=== PATIENT | female | born 1995 | race Two or more races ===

== ENCOUNTER 2022-10-12 19:47 | Observation (INO) | payer OTHER ==
[~2022-10-12] VITALS: Ht 160 cm; Wt 76.7 kg
[2022-10-12] MEDS ORDERED: VIT1TABL62 PO (20:35)
[2022-10-12] MEDS ORDERED: PREN-176 PO (20:35)
[2022-10-12] MEDS ORDERED: FERR-71 PO (20:35)
[2022-10-12] MEDS ORDERED: OMEG-119 PO (20:35)
[2022-10-12 22:41] LABS: BASOPHILS % 0.1 % (0.0-2.0); EOSINOPHILS % 0.8 % (0.0-5.0); HEMATOCRIT. 33.5 % (36.0-48.0); HEMOGLOBIN. 11.6 g/dL (12.0-16.0); LYMPHOCYTES % 9.5 % (20.0-50.0); MEAN CORPUSCULAR HEMOGLOBIN 31.1 pg (28.0-32.0); MEAN CORPUSCULAR VOLUME 90.2 fL (81.0-99.0); MEAN PLATELET VOLUME 7.8 fl (7.4-10.4); MONOCYTES % 4.4 % (2.0-8.0); NEUTROPHILS % 85.2 % (40.0-76.0); PLATELET 245 x1000/uL (130-400); RED BLOOD CELL COUNT 3.72 mill/uL (4.2-5.4); RED CELL DISTRIBUTION WIDTH 13.6 % (11.6-14.6)
[2022-10-12 22:48] LABS: CLARITY URINE CLEAR (CLEAR); COLOR URINE YELLOW (YELLOW); KETONES URINE NEGATIVE (NEGATIVE); LEUKOCYTE ESTERASE URINE NEGATIVE (NEGATIVE); NITRITE URINE NEGATIVE (NEGATIVE); OCCULT BLOOD URINE NEGATIVE (NEGATIVE); PH URINE 7.5 (4.5-8.0); PROTEIN URINE NEGATIVE (NEGATIVE); SPECIFIC GRAVITY URINE 1.006 (1.005-1.030); UROBILINOGEN URINE 0.2 E.U./dL (0.2-1.0)
[2022-10-13] MEDS: LACTATED RINGERS 1,000 ML IV SCH ×2 (00:44→04:41)
[2022-10-13] MEDS ORDERED: PENICILLIN G POTASSIUM 5 MMU in DEXT 5% WATER 100 ML IV SCH (06:15)
[2022-10-13] MEDS ORDERED: PENICILLIN G POTASSIUM 2.5 MMU in DEXTROSE 5% WATER 50 ML IV SCH (12:00)
== END 2022-10-13 02:10 | disposition home or self-care (01) ==
LOC: 8 EST LDRP 19:47
PROVIDERS: ADMIT Obstetrics & Gynecology; ATTEND Obstetrics & Gynecology
DX: O26.893 Other specified pregnancy related conditions, third trimester (principal); R10.2 Pelvic and perineal pain; R10.30 Lower abdominal pain, unspecified; O62.9 Abnormality of forces of labor, unspecified; Z3A.31 31 weeks gestation of pregnancy
CPT/HCPCS: 36415; 59025; 76805; 76818; 81003; 82731; 85025; 96360; G0378; J2540; J7060; 99281

== ENCOUNTER 2022-11-17 17:58 | Emergency (ER) | payer OTHER ==
[~2022-11-17] VITALS: Ht 165.1 cm; Wt 75.0 kg
[~2022-11-17 17:58] MED LIST: FERR-71 PO; OMEG-119 PO; PREN-176 PO; VIT1TABL62 PO
[2022-11-17 18:21] VITALS: BP 119/67
== END 2022-11-18 00:04 | disposition left against medical advice (07) ==
LOC: ER 17:58
DX: R05.9 Cough, unspecified (principal); Z53.21 Procedure and treatment not carried out due to patient leaving prior to being seen by health care provider
CPT/HCPCS: 99281